=== PATIENT | female | born 1965 | race Caucasian/White ===

== ENCOUNTER 2023-06-12 17:16 | Inpatient (IN) | payer MEDICARE, OTHER ==
[~2023-06-12] VITALS: Ht 165.1 cm; Wt 71.2 kg
[2023-06-12] MEDS ORDERED: LEVO75TA7 PO (17:35)
[2023-06-12] MEDS ORDERED: DIVA-78 PO (17:35)
[2023-06-12] MEDS ORDERED: QUET400T PO (17:35)
[2023-06-12] MEDS ORDERED: CYCL5TAB PO (17:35)
[2023-06-12] MEDS ORDERED: ALPR1TAB7 PO (17:35)
[2023-06-12] MEDS ORDERED: GABA-532 PO (17:35)
[2023-06-12] MEDS ORDERED: FAMO-132 PO (17:35)
[2023-06-12] MEDS ORDERED: FENO48TA PO (17:35)
[2023-06-12] MEDS ORDERED: QUET100T PO (17:35)
[2023-06-12] MEDS ORDERED: EMPA25TA PO (17:35)
[2023-06-12 20:45] VITALS: BP 114/87; TEMP 98.2; O2SAT 95
[2023-06-12] MEDS ORDERED: MAG HYDROX/AL HYDROX/SIMETH 30 ML LIQUID UDC PO PRN (21:00)
[2023-06-12] MEDS ORDERED: MAGNESIUM HYDROXIDE 30 ML LIQUID UDC PO PRN (21:00)
[2023-06-12] MEDS ORDERED: BLOOD SUGAR DIAGNOSTIC 1 EACH STRIP VI ONE (21:00)
[2023-06-12] MEDS: LORAZEPAM 0.5 MG TABLET PO PRN (23:28)
[2023-06-13] MEDS ORDERED: Medication Not On Formulary EA (Cyclobenzaprine Hcl 10 MG) PO PRN (08:00)
[2023-06-13 08:08] VITALS: BP 114/84; TEMP 98; O2SAT 96
[2023-06-13 08:09] LABS: BASOPHILS % (AUTO) 0.5 % (0.0-2.0); EOSINOPHILS # (AUTO) 0.1 K/uL (0.0-0.7); EOSINOPHILS % (AUTO) 0.9 % (0.0-7.0); HEMATOCRIT 42.3 % (31.2-41.9); HEMOGLOBIN 14.4 g/dL (10.9-14.3); LYMPHOCYTES # (AUTO) 2.4 K/uL (0.8-4.8); LYMPHOCYTES % (AUTO) 39.4 % (20.5-51.5); MEAN CORPUSCULAR HEMOGLOBIN 31.6 uug (24.7-32.8); MEAN CORPUSCULAR HGB CONC 34 g/dL (32.3-35.6); MONOCYTES # (AUTO) 0.7 K/uL (0.1-1.30); MONOCYTES % (AUTO) 11.2 % (0.0-11.0); NEUTROPHILS # (AUTO) 2.9 K/uL (1.8-8.9); PLATELET COUNT (AUTO) 330 K/uL (179-408); RED BLOOD CELL COUNT(AUTO) 4.54 MIL/uL (3.63-4.92); RED CELL DISTRIBUTION WIDTH 14.7 % (12.3-17.7); WHITE BLOOD COUNT (AUTO) 6.1 K/uL (3.8-11.8)
[2023-06-13 08:14] LABS: DIFFERENTIAL COMMENT 1
[2023-06-13 08:30] LABS: ALBUMIN 4.2 g/dL (3.4-5.0); BILIRUBIN,TOTAL 0.4 mg/dL (0.2-1.0); CREATININE 1.1 mg/dL (0.6-1.3); POTASSIUM 4.4 mmol/L (3.5-5.1); TOTAL PROTEIN, SERUM 8.3 g/dL (6.4-8.2)
[2023-06-13] MEDS ORDERED: Empagliflozin (Jardiance) 25 MG) PO SCH (09:00)
[2023-06-13] MEDS: FAMOTIDINE 20 MG TABLET PO SCH ×2 (09:28→17:11)
[2023-06-13] MEDS: LEVOTHYROXINE SODIUM 75 MCG TABLET PO SCH (09:28)
[2023-06-13] MEDS: DIVALPROEX 500 MG TABLET.DR PO SCH ×2 (11:31→20:15)
[2023-06-13] MEDS: QUETIAPINE FUMARATE 100 MG TABLET PO SCH (13:02)
[2023-06-13 16:02] VITALS: BP 118/82; TEMP 98; O2SAT 96
[2023-06-13] MEDS: EMPAGLIFLOZIN 25 MG TABLET PO SCH (17:14)
[2023-06-13] MEDS: ACETAMINOPHEN 325 MG TABLET PO PRN (17:19)
[2023-06-13 19:51] VITALS: BP 115/76; TEMP 98.2; O2SAT 99
[2023-06-13] MEDS: QUETIAPINE FUMARATE 200 MG TABLET PO SCH (20:15)
[2023-06-13] MEDS: GABAPENTIN 100 MG CAPSULE PO SCH (20:15)
[2023-06-13] MEDS ORDERED: QUETIAPINE FUMARATE 100 MG TABLET PO SCH (21:00)
[2023-06-13] MEDS: TEMAZEPAM 7.5 MG CAPSULE PO PRN (22:41)
[2023-06-14] MEDS: LEVOTHYROXINE SODIUM 75 MCG TABLET PO SCH (06:21)
[2023-06-14 07:30] VITALS: BP 93/70; TEMP 98; O2SAT 98
[2023-06-14] MEDS: DIVALPROEX 500 MG TABLET.DR PO SCH ×2 (08:53→20:54)
[2023-06-14] MEDS: FAMOTIDINE 20 MG TABLET PO SCH ×2 (08:53→17:57)
[2023-06-14] MEDS: FLUTICASONE PROP NASAL SPRAY 16 GM BOTTLE NS SCH (08:58)
[2023-06-14] MEDS: EMPAGLIFLOZIN 25 MG TABLET PO SCH (10:33)
[2023-06-14] MEDS: QUETIAPINE FUMARATE 100 MG TABLET PO SCH (12:38)
[2023-06-14 16:04] VITALS: BP 104/76; TEMP 98; O2SAT 98
[2023-06-14 20:05] VITALS: BP 128/75; TEMP 98.2; O2SAT 97
[2023-06-14] MEDS: GABAPENTIN 100 MG CAPSULE PO SCH (20:54)
[2023-06-14] MEDS: QUETIAPINE FUMARATE 200 MG TABLET PO SCH (20:54)
[2023-06-14] MEDS: TEMAZEPAM 7.5 MG CAPSULE PO PRN (22:13)
[2023-06-15] MEDS: LEVOTHYROXINE SODIUM 75 MCG TABLET PO SCH (06:08)
[2023-06-15 07:38] VITALS: BP 134/71; TEMP 97.6; O2SAT 98
[2023-06-15] MEDS: DIVALPROEX 500 MG TABLET.DR PO SCH ×2 (09:00→21:16)
[2023-06-15] MEDS: FAMOTIDINE 20 MG TABLET PO SCH ×2 (09:00→17:04)
[2023-06-15] MEDS: FLUTICASONE PROP NASAL SPRAY 16 GM BOTTLE NS SCH (09:01)
[2023-06-15] MEDS: EMPAGLIFLOZIN 25 MG TABLET PO SCH (09:02)
[2023-06-15] MEDS: QUETIAPINE FUMARATE 100 MG TABLET PO SCH (13:40)
[2023-06-15 16:23] VITALS: BP 120/64; TEMP 98.1; O2SAT 98
[2023-06-15 20:00] VITALS: BP 128/72; TEMP 98.4; O2SAT 94
[2023-06-15] MEDS: QUETIAPINE FUMARATE 200 MG TABLET PO SCH (21:16)
[2023-06-15] MEDS: GABAPENTIN 100 MG CAPSULE PO SCH (21:16)
[2023-06-15] MEDS: ACETAMINOPHEN 325 MG TABLET PO PRN (23:58)
[2023-06-16] MEDS: TEMAZEPAM 7.5 MG CAPSULE PO PRN ×2 (00:55→21:46)
[2023-06-16] MEDS: LEVOTHYROXINE SODIUM 75 MCG TABLET PO SCH (06:33)
[2023-06-16 08:12] VITALS: BP 134/74; TEMP 98; O2SAT 98
[2023-06-16] MEDS: DIVALPROEX 500 MG TABLET.DR PO SCH ×2 (08:37→20:16)
[2023-06-16] MEDS: FAMOTIDINE 20 MG TABLET PO SCH ×2 (08:37→17:29)
[2023-06-16] MEDS: EMPAGLIFLOZIN 25 MG TABLET PO SCH (08:38)
[2023-06-16] MEDS: FLUTICASONE PROP NASAL SPRAY 16 GM BOTTLE NS SCH (08:40)
[2023-06-16] MEDS: QUETIAPINE FUMARATE 100 MG TABLET PO SCH (13:22)
[2023-06-16 16:15] VITALS: BP 98/69; TEMP 98; O2SAT 98
[2023-06-16 20:02] VITALS: BP 130/76; TEMP 98.1; O2SAT 96
[2023-06-16] MEDS: QUETIAPINE FUMARATE 200 MG TABLET PO SCH (20:16)
[2023-06-16] MEDS: GABAPENTIN 100 MG CAPSULE PO SCH (20:16)
[2023-06-17] MEDS: LEVOTHYROXINE SODIUM 75 MCG TABLET PO SCH (06:43)
[2023-06-17] MEDS: ACETAMINOPHEN 325 MG TABLET PO PRN (07:03)
[2023-06-17 07:59] VITALS: BP 146/84; TEMP 98.1; O2SAT 98
[2023-06-17] MEDS: FAMOTIDINE 20 MG TABLET PO SCH ×2 (08:45→17:24)
[2023-06-17] MEDS: DIVALPROEX 500 MG TABLET.DR PO SCH ×2 (08:45→21:02)
[2023-06-17] MEDS: EMPAGLIFLOZIN 25 MG TABLET PO SCH (08:45)
[2023-06-17] MEDS: FLUTICASONE PROP NASAL SPRAY 16 GM BOTTLE NS SCH (08:46)
[2023-06-17] MEDS ORDERED: QUETIAPINE FUMARATE 25 MG TABLET PO SCH (13:00)
[2023-06-17 16:18] VITALS: BP 156/84; TEMP 98; O2SAT 100
[2023-06-17 20:00] VITALS: BP 116/74; TEMP 98.3; O2SAT 95
[2023-06-17] MEDS ORDERED: QUETIAPINE FUMARATE 100 MG TABLET PO SCH ×2 (21:00)
[2023-06-17] MEDS ORDERED: QUETIAPINE FUMARATE 200 MG TABLET PO SCH (21:00)
[2023-06-17] MEDS: GABAPENTIN 100 MG CAPSULE PO SCH (21:01)
[2023-06-17] MEDS: TEMAZEPAM 7.5 MG CAPSULE PO PRN (23:32)
[2023-06-18] MEDS: LEVOTHYROXINE SODIUM 75 MCG TABLET PO SCH (06:40)
[2023-06-18] MEDS ORDERED: QUETIAPINE FUMARATE 25 MG TABLET PO SCH (08:00)
[2023-06-18 08:29] VITALS: BP 127/78; TEMP 98.2; O2SAT 98
[2023-06-18] MEDS: DIVALPROEX 500 MG TABLET.DR PO SCH ×2 (08:48→20:09)
[2023-06-18] MEDS: FAMOTIDINE 20 MG TABLET PO SCH ×2 (08:49→17:08)
[2023-06-18] MEDS: FLUTICASONE PROP NASAL SPRAY 16 GM BOTTLE NS SCH (08:50)
[2023-06-18] MEDS: EMPAGLIFLOZIN 25 MG TABLET PO SCH (08:50)
[2023-06-18] MEDS: ACETAMINOPHEN 325 MG TABLET PO PRN (13:31)
[2023-06-18 15:11] VITALS: BP 111/66; TEMP 98.2; O2SAT 100
[2023-06-18 20:00] VITALS: BP 125/69; TEMP 98.6; O2SAT 99
[2023-06-18] MEDS: GABAPENTIN 100 MG CAPSULE PO SCH (20:09)
[2023-06-18] MEDS: QUETIAPINE FUMARATE 200 MG TABLET PO SCH (20:17)
[2023-06-18] MEDS: TEMAZEPAM 7.5 MG CAPSULE PO PRN (23:51)
[2023-06-19] MEDS: LEVOTHYROXINE SODIUM 75 MCG TABLET PO SCH (06:43)
[2023-06-19] MEDS ORDERED: QUETIAPINE FUMARATE 25 MG TABLET PO SCH (08:00)
[2023-06-19 08:05] LABS: BASOPHILS % (AUTO) 0.9 % (0.0-2.0); EOSINOPHILS # (AUTO) 0.1 K/uL (0.0-0.7); EOSINOPHILS % (AUTO) 1.3 % (0.0-7.0); HEMATOCRIT 40.1 % (31.2-41.9); HEMOGLOBIN 13.5 g/dL (10.9-14.3); LYMPHOCYTES # (AUTO) 1.8 K/uL (0.8-4.8); LYMPHOCYTES % (AUTO) 43.1 % (20.5-51.5); MEAN CORPUSCULAR HEMOGLOBIN 31.5 uug (24.7-32.8); MEAN CORPUSCULAR HGB CONC 34 g/dL (32.3-35.6); MEAN CORPUSCULAR VOLUME 93.6 fL (75.5-95.3); MONOCYTES # (AUTO) 0.5 K/uL (0.1-1.30); MONOCYTES % (AUTO) 12.1 % (0.0-11.0); NEUTROPHILS # (AUTO) 1.8 K/uL (1.8-8.9); NEUTROPHILS % (AUTO) 42.6 % (38.5-71.5); PLATELET COUNT (AUTO) 301 K/uL (179-408); RED BLOOD CELL COUNT(AUTO) 4.29 MIL/uL (3.63-4.92); RED CELL DISTRIBUTION WIDTH 14.6 % (12.3-17.7); WHITE BLOOD COUNT (AUTO) 4.1 K/uL (3.8-11.8)
[2023-06-19] MEDS: DIVALPROEX 500 MG TABLET.DR PO SCH ×2 (08:24→20:24)
[2023-06-19] MEDS: EMPAGLIFLOZIN 25 MG TABLET PO SCH (08:25)
[2023-06-19] MEDS: QUETIAPINE FUMARATE 100 MG TABLET PO SCH (08:25)
[2023-06-19] MEDS: FLUTICASONE PROP NASAL SPRAY 16 GM BOTTLE NS SCH (08:26)
[2023-06-19] MEDS: FAMOTIDINE 20 MG TABLET PO SCH ×2 (08:30→17:10)
[2023-06-19 08:33] LABS: DIFFERENTIAL COMMENT 1
[2023-06-19 08:38] LABS: BILIRUBIN,TOTAL 0.4 mg/dL (0.2-1.0); CALCIUM 10.5 mg/dL (8.5-10.1); CREATININE 1.1 mg/dL (0.6-1.3); TOTAL PROTEIN, SERUM 7.9 g/dL (6.4-8.2)
[2023-06-19 15:33] VITALS: BP 113/72; TEMP 98.2; O2SAT 98
[2023-06-19 20:00] VITALS: BP 110/59; TEMP 97.8; O2SAT 96
[2023-06-19] MEDS: GABAPENTIN 100 MG CAPSULE PO SCH (20:25)
[2023-06-19] MEDS: QUETIAPINE FUMARATE 200 MG TABLET PO SCH (20:26)
[2023-06-19] MEDS: TEMAZEPAM 7.5 MG CAPSULE PO PRN (22:50)
[2023-06-20] MEDS: LEVOTHYROXINE SODIUM 75 MCG TABLET PO SCH (06:52)
[2023-06-20 07:30] VITALS: BP 102/72; TEMP 98; O2SAT 99
[2023-06-20] MEDS: DIVALPROEX 500 MG TABLET.DR PO SCH ×2 (08:47→21:03)
[2023-06-20] MEDS: QUETIAPINE FUMARATE 100 MG TABLET PO SCH (08:47)
[2023-06-20] MEDS: EMPAGLIFLOZIN 25 MG TABLET PO SCH (08:47)
[2023-06-20] MEDS: FAMOTIDINE 20 MG TABLET PO SCH ×2 (08:47→17:00)
[2023-06-20] MEDS: FLUTICASONE PROP NASAL SPRAY 16 GM BOTTLE NS SCH (08:48)
[2023-06-20] MEDS: DIVALPROEX 250 MG TABLET.DR PO SCH (12:54)
[2023-06-20 15:10] VITALS: BP 122/85; TEMP 98; O2SAT 98
[2023-06-20 20:10] VITALS: BP 101/56; TEMP 98.2; O2SAT 95
[2023-06-20] MEDS: GABAPENTIN 100 MG CAPSULE PO SCH (21:03)
[2023-06-20] MEDS: QUETIAPINE FUMARATE 200 MG TABLET PO SCH (21:03)
[2023-06-21] MEDS: TEMAZEPAM 7.5 MG CAPSULE PO PRN (01:58)
[2023-06-21] MEDS: LEVOTHYROXINE SODIUM 75 MCG TABLET PO SCH (07:28)
[2023-06-21 08:10] LABS: BASOPHILS % (AUTO) 0.9 % (0.0-2.0); EOSINOPHILS # (AUTO) 0.1 K/uL (0.0-0.7); EOSINOPHILS % (AUTO) 1.4 % (0.0-7.0); HEMATOCRIT 39.3 % (31.2-41.9); LYMPHOCYTES # (AUTO) 1.9 K/uL (0.8-4.8); LYMPHOCYTES % (AUTO) 44.3 % (20.5-51.5); MEAN CORPUSCULAR HEMOGLOBIN 31.1 uug (24.7-32.8); MEAN CORPUSCULAR HGB CONC 33 g/dL (32.3-35.6); MEAN CORPUSCULAR VOLUME 93.8 fL (75.5-95.3); MONOCYTES # (AUTO) 0.5 K/uL (0.1-1.30); MONOCYTES % (AUTO) 12.5 % (0.0-11.0); NEUTROPHILS # (AUTO) 1.7 K/uL (1.8-8.9); NEUTROPHILS % (AUTO) 40.9 % (38.5-71.5); PLATELET COUNT (AUTO) 266 K/uL (179-408); RED BLOOD CELL COUNT(AUTO) 4.19 MIL/uL (3.63-4.92); RED CELL DISTRIBUTION WIDTH 14.2 % (12.3-17.7); WHITE BLOOD COUNT (AUTO) 4.2 K/uL (3.8-11.8)
[2023-06-21 08:18] LABS: DIFFERENTIAL COMMENT 1
[2023-06-21] MEDS: QUETIAPINE FUMARATE 100 MG TABLET PO SCH (08:28)
[2023-06-21] MEDS: DIVALPROEX 500 MG TABLET.DR PO SCH ×4 (08:28→21:06)
[2023-06-21] MEDS: EMPAGLIFLOZIN 25 MG TABLET PO SCH (08:29)
[2023-06-21] MEDS: FAMOTIDINE 20 MG TABLET PO SCH ×2 (08:29→16:56)
[2023-06-21] MEDS: FLUTICASONE PROP NASAL SPRAY 16 GM BOTTLE NS SCH (08:29)
[2023-06-21 08:30] LABS: ALBUMIN 3.8 g/dL (3.4-5.0); BILIRUBIN,TOTAL 0.5 mg/dL (0.2-1.0); POTASSIUM 3.8 mmol/L (3.5-5.1); TOTAL PROTEIN, SERUM 7.4 g/dL (6.4-8.2)
[2023-06-21 10:14] VITALS: BP 113/79; TEMP 97.8; O2SAT 99
[2023-06-21] MEDS: DIVALPROEX 250 MG TABLET.DR PO SCH (12:16)
[2023-06-21] MEDS ORDERED: DIVALPROEX 250 MG TABLET.DR PO SCH (13:00)
[2023-06-21] MEDS ORDERED: DIVALPROEX 500 MG TABLET.DR PO SCH (13:00)
[2023-06-21] MEDS ORDERED: DIVALPROEX 250 MG TABLET.DR PO ONE (13:45)
[2023-06-21] MEDS: QUETIAPINE FUMARATE 200 MG TABLET PO SCH (21:06)
[2023-06-21] MEDS: GABAPENTIN 100 MG CAPSULE PO SCH (21:07)
[2023-06-22] MEDS: LEVOTHYROXINE SODIUM 75 MCG TABLET PO SCH (06:36)
[2023-06-22 07:57] VITALS: BP 110/74; TEMP 97.6; O2SAT 97
[2023-06-22] MEDS: DIVALPROEX 500 MG TABLET.DR PO SCH ×3 (08:42→20:53)
[2023-06-22] MEDS: QUETIAPINE FUMARATE 100 MG TABLET PO SCH (08:42)
[2023-06-22] MEDS: FAMOTIDINE 20 MG TABLET PO SCH ×2 (08:42→17:30)
[2023-06-22] MEDS: FLUTICASONE PROP NASAL SPRAY 16 GM BOTTLE NS SCH (08:43)
[2023-06-22] MEDS: EMPAGLIFLOZIN 25 MG TABLET PO SCH (08:43)
[2023-06-22] MEDS: CYCLOBENZAPRINE HCL 10 MG TABLET PO PRN (14:09)
[2023-06-22] MEDS: ACETAMINOPHEN 325 MG TABLET PO PRN (14:09)
[2023-06-22 16:44] VITALS: BP 100/63; TEMP 98.1; O2SAT 98
[2023-06-22 20:01] VITALS: BP 104/71; TEMP 98.3; O2SAT 96
[2023-06-22] MEDS: GABAPENTIN 100 MG CAPSULE PO SCH (20:52)
[2023-06-22] MEDS: QUETIAPINE FUMARATE 200 MG TABLET PO SCH (20:53)
[2023-06-22] MEDS: ATORVASTATIN 20 MG TABLET PO SCH (20:53)
[2023-06-22] MEDS: LORAZEPAM 0.5 MG TABLET PO PRN (20:53)
[2023-06-23] MEDS: LEVOTHYROXINE SODIUM 75 MCG TABLET PO SCH (06:02)
[2023-06-23 07:59] VITALS: BP 115/80; TEMP 98; O2SAT 99
[2023-06-23] MEDS: FAMOTIDINE 20 MG TABLET PO SCH ×2 (08:33→16:43)
[2023-06-23] MEDS: DIVALPROEX 500 MG TABLET.DR PO SCH ×3 (08:33→20:37)
[2023-06-23] MEDS: QUETIAPINE FUMARATE 100 MG TABLET PO SCH (08:33)
[2023-06-23] MEDS: EMPAGLIFLOZIN 25 MG TABLET PO SCH (08:34)
[2023-06-23] MEDS: FLUTICASONE PROP NASAL SPRAY 16 GM BOTTLE NS SCH (08:35)
[2023-06-23 16:07] VITALS: BP 130/68; TEMP 98; O2SAT 99
[2023-06-23] MEDS: ACETAMINOPHEN 325 MG TABLET PO PRN (16:43)
[2023-06-23] MEDS: CYCLOBENZAPRINE HCL 10 MG TABLET PO PRN (16:56)
[2023-06-23 19:51] VITALS: BP 103/58; TEMP 98.1; O2SAT 95
[2023-06-23] MEDS: GABAPENTIN 100 MG CAPSULE PO SCH (20:38)
[2023-06-23] MEDS: ATORVASTATIN 20 MG TABLET PO SCH (20:38)
[2023-06-23] MEDS: QUETIAPINE FUMARATE 200 MG TABLET PO SCH (20:38)
[2023-06-23] MEDS: TEMAZEPAM 7.5 MG CAPSULE PO PRN (23:09)
[2023-06-24] MEDS: LEVOTHYROXINE SODIUM 75 MCG TABLET PO SCH (06:12)
[2023-06-24 07:45] VITALS: BP 133/87; TEMP 98; O2SAT 99
[2023-06-24] MEDS: QUETIAPINE FUMARATE 100 MG TABLET PO SCH (08:19)
[2023-06-24] MEDS: DIVALPROEX 500 MG TABLET.DR PO SCH ×3 (08:20→20:51)
[2023-06-24] MEDS: FAMOTIDINE 20 MG TABLET PO SCH ×2 (08:20→16:47)
[2023-06-24] MEDS: FLUTICASONE PROP NASAL SPRAY 16 GM BOTTLE NS SCH (08:21)
[2023-06-24] MEDS: EMPAGLIFLOZIN 25 MG TABLET PO SCH (08:22)
[2023-06-24 11:53] LABS: BASOPHILS # (AUTO) 0.1 K/UL (0.0-0.2); BASOPHILS % (AUTO) 0.8 % (0.0-2.0); EOSINOPHILS % (AUTO) 0.2 % (0.0-7.0); HEMATOCRIT 38.4 % (31.2-41.9); HEMOGLOBIN 13.1 g/dL (10.9-14.3); LYMPHOCYTES # (AUTO) 1.8 K/uL (0.8-4.8); MEAN CORPUSCULAR HEMOGLOBIN 31.8 uug (24.7-32.8); MEAN CORPUSCULAR HGB CONC 34 g/dL (32.3-35.6); MEAN CORPUSCULAR VOLUME 93.2 fL (75.5-95.3); MONOCYTES # (AUTO) 0.6 K/uL (0.1-1.30); MONOCYTES % (AUTO) 7.8 % (0.0-11.0); NEUTROPHILS # (AUTO) 5.4 K/uL (1.8-8.9); NEUTROPHILS % (AUTO) 68.2 % (38.5-71.5); PLATELET COUNT (AUTO) 212 K/uL (179-408); RED BLOOD CELL COUNT(AUTO) 4.13 MIL/uL (3.63-4.92); RED CELL DISTRIBUTION WIDTH 14.2 % (12.3-17.7); WHITE BLOOD COUNT (AUTO) 7.9 K/uL (3.8-11.8)
[2023-06-24 11:59] LABS: DIFFERENTIAL COMMENT 1
[2023-06-24] MEDS: CYCLOBENZAPRINE HCL 10 MG TABLET PO PRN (12:02)
[2023-06-24 12:15] LABS: ALBUMIN 3.8 g/dL (3.4-5.0); BILIRUBIN,TOTAL 0.3 mg/dL (0.2-1.0); CALCIUM 9.5 mg/dL (8.5-10.1); CREATININE 1.3 mg/dL (0.6-1.3); TOTAL PROTEIN, SERUM 7.7 g/dL (6.4-8.2)
[2023-06-24 16:08] VITALS: BP 100/77; TEMP 98; O2SAT 100
[2023-06-24 19:54] VITALS: BP 111/74; TEMP 98.2; O2SAT 96
[2023-06-24] MEDS: GABAPENTIN 100 MG CAPSULE PO SCH (20:51)
[2023-06-24] MEDS: QUETIAPINE FUMARATE 200 MG TABLET PO SCH (20:51)
[2023-06-24] MEDS: ATORVASTATIN 20 MG TABLET PO SCH (20:51)
[2023-06-24] MEDS: TEMAZEPAM 7.5 MG CAPSULE PO PRN (20:52)
[2023-06-25] MEDS: LEVOTHYROXINE SODIUM 75 MCG TABLET PO SCH (06:41)
[2023-06-25 07:30] VITALS: BP 108/81; TEMP 98; O2SAT 99
[2023-06-25] MEDS: QUETIAPINE FUMARATE 100 MG TABLET PO SCH (08:26)
[2023-06-25] MEDS: DIVALPROEX 500 MG TABLET.DR PO SCH ×2 (08:26→13:20)
[2023-06-25] MEDS: EMPAGLIFLOZIN 25 MG TABLET PO SCH (08:27)
[2023-06-25] MEDS: FAMOTIDINE 20 MG TABLET PO SCH (08:27)
[2023-06-25] MEDS: FLUTICASONE PROP NASAL SPRAY 16 GM BOTTLE NS SCH (08:27)
[2023-06-25] MEDS: CYCLOBENZAPRINE HCL 10 MG TABLET PO PRN (13:24)
== END 2023-06-25 15:45 | disposition home or self-care (01) | DRG 885 ==
LOC: ER 17:23 → GPS 20:28
PROVIDERS: ADMIT Psychiatry & Neurology Psychosomatic Medicine; ATTEND Internal Medicine
DX: F31.9 Bipolar disorder, unspecified (principal); E11.42 Type 2 diabetes mellitus with diabetic polyneuropathy; E78.5 Hyperlipidemia, unspecified; S06.9XAS Unspecified intracranial injury with loss of consciousness status unknown, sequela; V49.9XXS Car occupant (driver) (passenger) injured in unspecified traffic accident, sequela; Z91.51 Personal history of suicidal behavior; F60.3 Borderline personality disorder; Z87.440 Personal history of urinary (tract) infections; E03.9 Hypothyroidism, unspecified; F41.9 Anxiety disorder, unspecified; Z79.890 Hormone replacement therapy; Z79.84 Long term (current) use of oral hypoglycemic drugs; M62.81 Muscle weakness (generalized); K44.9 Diaphragmatic hernia without obstruction or gangrene; Z91.81 History of falling; R79.89 Other specified abnormal findings of blood chemistry; F60.9 Personality disorder, unspecified
CPT/HCPCS: 36415; 80164; 85025; J3490; J3535